=== PATIENT | female | born 1985 | race American Indian/Alaskan Native ===

== ENCOUNTER 2017-03-26 10:33 | Outpatient (CLI) | payer OTHER, MEDICAID ==
[2017-03-26 11:14] VITALS: BP 116/66
== END 2017-03-26 12:20 | disposition home or self-care (01) ==
LOC: TRG 10:33
PROVIDERS: ATTEND Obstetrics & Gynecology
DX: O47.03 False labor before 37 completed weeks of gestation, third trimester (principal); Z3A.32 32 weeks gestation of pregnancy
CPT/HCPCS: 59025

== ENCOUNTER 2017-05-02 12:06 | Outpatient (CLI) | payer OTHER, MEDICAID ==
[2017-05-02 12:54] VITALS: BP 120/73
[2017-05-02 13:19] LABS: Bacteria,Urine 1+ /HPF (Negative); Bilirubin,Urine NEG (Negative); Blood,Urine NEG (Negative); Ketones,Urine TR mg/dL (Negative); Leukocyte Esterase,Urine TR (Negative); Mucus,Urine 1+ /HPF; Nitrite,Urine NEG (Negative)
[2017-05-02] MEDS ORDERED: LACTATED RINGERS 1,000 ML IV ONE (13:25)
== END 2017-05-02 15:20 | disposition home or self-care (01) ==
LOC: TRG 12:06
PROVIDERS: ATTEND Obstetrics & Gynecology
DX: O47.1 False labor at or after 37 completed weeks of gestation (principal); Z3A.38 38 weeks gestation of pregnancy
CPT/HCPCS: 59025; 81001; 96360; J7120